=== PATIENT | female | born 1955 | race African-American/Black ===

== ENCOUNTER → 2024-02-20 | Outpatient (BNVA) | payer MEDICARE, MEDICAID, SELFPAY | END | disposition home or self-care (01) | PROVIDERS: PCP Physician Assistant; Referring Provider Physician Assistant; Visit Provider Physician Assistant | DX: N28.89 Other specified disorders of kidney and ureter (principal); J44.9 Chronic obstructive pulmonary disease, unspecified; Z80.42 Family history of malignant neoplasm of prostate; Z87.891 Personal history of nicotine dependence | CPT/HCPCS: Q3014 ==

== ENCOUNTER 2024-05-09 10:00 | Day surgery (SDC) | payer MEDICARE, MEDICAID, SELFPAY ==
[2024-05-08 15:36] VITALS: BMI 23.3
[2024-05-09] VITALS (14 sets, daily range): BP systolic 89–163; BP diastolic 53–104; PULSE 66–91; RESP 13–20; TEMP 36.1–36.3; O2SAT 94–99; BMI 21.9
[2024-05-09] MEDS: SODIUM CHLORIDE 0.9% 500 ML 500 ML 20 ML IV (10:45)
[2024-05-09] MEDS: DiphenhydrAMINE INJ 50 MG/ML VIAL 25 MG IV (10:50)
[2024-05-09] MEDS: MIDAZOLAM INJ 1 MG/ML VIAL 2 ML (ASD USE ONLY) 2 MG IV (11:14)
[2024-05-09] MEDS: fentaNYL CIT INJ 50 mCg/ML AMP 2ML (ASD USE ONLY) IV (11:14)
== END 2024-05-09 13:00 | disposition home or self-care (01) ==
PROVIDERS: PCP Physician Assistant; Referring Provider Internal Medicine Gastroenterology; Visit Provider Internal Medicine Gastroenterology
PROC: 0DBE8ZX Excision of Large Intestine, Via Natural or Artificial Opening Endoscopic, Diagnostic (ICD-10-PCS; CPT 45380; principal; 2024-05-09 08:00)
PROC: (CPT 43239; 2024-05-09 08:00)
DX: D12.3 Benign neoplasm of transverse colon (principal); K64.1 Second degree hemorrhoids; K57.30 Diverticulosis of large intestine without perforation or abscess without bleeding; K29.50 Unspecified chronic gastritis without bleeding; K31.89 Other diseases of stomach and duodenum; K63.5 Polyp of colon
CPT/HCPCS: 45385; 45380; A4649; J1200; J2250; J3010; J7040